=== PATIENT | female | born 1990 | race Hispanic/Latino ===

== ENCOUNTER → 2018-01-29 | Outpatient (CLI) | payer BC | END | disposition home or self-care (01) | LOC: RAH 14:35 | PROVIDERS: ATTEND Internal Medicine | DX: N83.202 Unspecified ovarian cyst, left side (principal); R10.2 Pelvic and perineal pain | CPT/HCPCS: 76830 ==

== ENCOUNTER → 2021-01-17 | Outpatient (CLI) | payer BC | END | disposition home or self-care (01) | LOC: RAH 13:19 | PROVIDERS: ATTEND Internal Medicine | DX: E04.2 Nontoxic multinodular goiter (principal) | CPT/HCPCS: 76536 ==